=== PATIENT | male | born 1945 | race Caucasian/White ===

== ENCOUNTER → 2016-12-31 | Outpatient (CLI) | payer MEDICARE, BC ==
[~2016-12-31] MED LIST: AMLODIPINE BESY10 MG PO; ARTIFICIAL TEAR1 DRP OP; ASPIRINEC PO; CERTAGEN PO; DILANTIN KAPSE100 MG PO; DILANTIN PO; ECOTRIN81 M1 PO; IBUPROFEN PO; LIPITOR PO; LIPITOR20 MG PO; LISINOPRIL20 MG PO; LOPRESSOR PO; METOPROLOL TAR25 MG PO; PAIN RELIEVER500 M6 PO; PREDNISONE10 MG PO; VALACYCLOVIR1000 MG PO; VISION VITAMIN1 EACH PO; ZINC30 M1 PO
--- NOTE | ~2016-12-31 | US136 ---
[facility] A Service of [facility] RADIOLOGY TEXT RESULTS PATIENT: VI DONOVAN LOCATION: CNIV : 45 UNIT #: [id number] AGE: [address]: Mickie Urban MD SEX: M ORDER DR: [id number] [facility] [address] [place], [place] [address] [id number] O MR#: [id number] Acc #: [id number] NAME: VI DONOVAN. : 1945 SEX: M STUDY DATE/TIME: 12/31/2016 10:33 UNIT: CNIV ROOM: STUDY DESCRIPTION: US U/L Ext Art Study [facility] Bil Attending Physician: Mickie Urban M.D. Referring Physician: Mickie Urban M.D. Ordering Physician: Mickie Urban M.D. Primary Care Physician: Forrest Topete M.D. MEDICAL IMAGING REPORT This report is preliminary unless electronic signature is present EXAM Ankle-brachial indices, 12/31/2016. HISTORY Claudication. FINDINGS Wave forms are monophasic at the dorsalis pedis and posterior tibial levels bilaterally. Pulse volume recordings are dampened at the ankle levels bilaterally. Right brachial pressure is 151 and left brachial pressure is 141. On the right side, dorsalis pedis is 107, posterior tibial 112, great toe 66 for a right ankle-brachial index of 0.74. On the left side, posterior tibial is 108, dorsalis pedis 100, great toe 68 for a left ankle-brachial index of 0.72. IMPRESSION Moderate peripheral arterial disease is seen in the lower extremities bilaterally, with REGIS of 0.72 on the right and 0.72 on the left. Dictated by... Jayesh Rashid M.D. THIS IS AN ELECTRONICALLY VERIFIED REPORT Jayesh Rashid M.D. at 01/15/2017 5:12 PM Deng TD: 12/31/2016 19:28 [facility] A Service of [facility] RADIOLOGY TEXT RESULTS PATIENT: VI DONOVAN LOCATION: [facility] #: [id number] : [birth year] UNIT #: [id number] AGE: [address]: Mickie Urban MD SEX: M ORDER DR: JOB #: [id number] MEDICAL IMAGING REPORT Page 1 of 1 COPY
== END | disposition home or self-care (01) ==
LOC: CNIV 10:26
DX: I73.9 Peripheral vascular disease, unspecified (principal); I71.4 Abdominal aortic aneurysm, without rupture
CPT/HCPCS: 93922

== ENCOUNTER → 2017-04-02 | Day surgery (SDC) | payer MEDICARE, BC ==
--- NOTE | ~2017-04-02 | OR ---
Unit #: [id number] #: [id number] Patient: VI DONOVAN [id number] [address] [place], [place] [address] [id number] O MR#: [id number] NAME: VI DONOVAN ROOM: Date of Procedure: 04/02/2017 Admission Date: 04/02/2017 Surgeon: Jeferson Parish M.D. : 1945 Attending Physician: Jeferson Parish M.D. Primary Care Physician: Forrest Topete M.D. OPERATIVE REPORT POSTOPERATIVE DIAGNOSES Radiculopathy, spondylolisthesis, spinal stenosis, degenerative disk disease. POSTOPERATIVE DIAGNOSES Radiculopathy, spondylolisthesis, spinal stenosis, degenerative disk disease. PROCEDURE PERFORMED Lumbar epidural steroid injection with fluoroscopic guidance for needle localization. INDICATIONS FOR PROCEDURE The patient is a 71-year-old male, who has had return of left greater than right lower extremity pain to his foot. The patient has known grade 2 spondylolisthesis at the L5-S1 level. He is treated for this with epidurals back in 2012 and 2007 and did extremely well. He recently had vascular surgery, which helped his symptoms of intermittent claudication with radicular pain. Based on history, pathology, symptomatology, and prior response to treatment, we are going to proceed with a repeat epidural steroid injection today. DESCRIPTION OF PROCEDURE The patient was placed in a seated position. Standard monitors were applied. Sterile prep and drape of the lumbar area was performed. The skin then at the L5-S1 level was localized with 1% lidocaine. An 18-gauge Flexion [employer] needle was then advanced via loss of resistance technique and fluoroscopic guidance in toward the epidural space. After confirming proper positioning with fluoroscopy and radiographic contrast, 80 mg of Depo-Medrol and 6 mL of 0.125% bupivacaine were deposited. The patient tolerated the procedure otherwise well and was discharged to the recovery room in stable condition. Dictated by... Jeferson Parish M.D. LHP/trael TD: 04/02/2017 23:15 JOB #: [id number] Unit #: [id number] #: [id number] Patient: VI DONOVAN M.D. OPERATIVE REPORT Page 1 of 1 X Jeferson Parish MD X PROCEDURE OPERATIVE NOTE
== END | disposition home or self-care (01) ==
LOC: CCSC 08:33
DX: M51.16 Intervertebral disc disorders with radiculopathy, lumbar region (principal); M43.17 Spondylolisthesis, lumbosacral region; M48.06 Spinal stenosis, lumbar region; I10 Essential (primary) hypertension; G40.909 Epilepsy, unspecified, not intractable, without status epilepticus; I73.9 Peripheral vascular disease, unspecified; Z79.82 Long term (current) use of aspirin; Z79.899 Other long term (current) drug therapy
CPT/HCPCS: J1040; J2250

== ENCOUNTER → 2017-04-16 | Day surgery (SDC) | payer MEDICARE, BC ==
--- NOTE | ~2017-04-16 | OR ---
Unit #: [id number] #: [id number] Patient: VI DONOVAN [id number] [address] [place], [place] [address] [id number] O MR#: [id number] NAME: VI DONOVAN ROOM: Date of Procedure: 04/16/2017 Admission Date: 04/16/2017 Surgeon: Jeferson Parish M.D. : 1945 Attending Physician: Jeferson Parish M.D. Primary Care Physician: Forrest Topete M.D. OPERATIVE REPORT PREOPERATIVE DIAGNOSES Back pain, radiculopathy, spondylolisthesis, degenerative disk disease. POSTOPERATIVE DIAGNOSES Back pain, radiculopathy, spondylolisthesis, degenerative disk disease. PROCEDURE PERFORMED Lumbar epidural steroid injection with fluoroscopic guidance for needle localization. INDICATIONS FOR PROCEDURE The patient is a 71-year-old male with return of significant left lower extremity radicular pain. He was last treated for this problem in 2011 and did well for about 4-1/2 years. This pain flared up after having some recent vascular surgery. It would not settle with conservative measures. Workup demonstrated grade 2 spondylolisthesis at the L5-S1 level. This epidural steroid injection resulted only mild settling of the symptom complex in the past, always took the second and the third, additively gave him good improvement. Based on history, pathology, symptomatology, response to treatment, we are going to proceed with a second injection today. DESCRIPTION OF PROCEDURE The patient was placed in a seated position. Standard monitors were applied. Sterile prep and drape of the lumbar area was performed. The skin then at the L5 level was localized with 1% lidocaine. An 18-gauge [employer] needle was then advanced via loss of resistance technique and fluoroscopic guidance for needle localization. After confirming proper positioning with fluoroscopy and radiographic contrast, 80 mg of Depo-Medrol and 4 mL of 0.125% bupivacaine were deposited. The patient tolerated the procedure otherwise well and was discharged to the recovery room in stable condition. Dictated by... 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
== END | disposition home or self-care (01) ==
LOC: CCSC 07:37
DX: M51.16 Intervertebral disc disorders with radiculopathy, lumbar region (principal); M43.17 Spondylolisthesis, lumbosacral region; I10 Essential (primary) hypertension; I73.9 Peripheral vascular disease, unspecified; Z79.82 Long term (current) use of aspirin; Z79.899 Other long term (current) drug therapy
CPT/HCPCS: J1040; J2250

== ENCOUNTER → 2017-04-23 | Day surgery (SDC) | payer MEDICARE, BC ==
--- NOTE | ~2017-04-23 | OR ---
Unit #: [id number] #: [id number] Patient: VI DONOVAN [id number] [address] [place], [place] [address] [id number] O MR#: [id number] NAME: VI DONOVAN ROOM: Date of Procedure: 04/23/2017 Admission Date: 04/23/2017 Surgeon: Jeferson Parish M.D. : 1945 Attending Physician: Jeferson Parish M.D. Primary Care Physician: Forrest Topete M.D. OPERATIVE REPORT JOB NOTE: CC: [facility] PREOPERATIVE DIAGNOSES Left lower extremity radiculopathy and spinal stenosis. POSTOPERATIVE DIAGNOSES Left lower extremity radiculopathy and spinal stenosis. PROCEDURE PERFORMED Lumbar epidural steroid injection with fluoroscopic guidance for needle localization. INDICATIONS FOR PROCEDURE The patient is a 71-year-old male with return of left lower extremity radicular type pain. In the past, he had been treated for the same symptoms with epidural steroid injections and gotten very good relief for about 5 years time. Last injection was in 2011, before that in 2007. Recently had some vascular surgery, which helped his intermittent claudication symptoms, but not the radicular pain. He has known grade 2 spondylolisthesis at the L5-S1 level, so the plan is to repeat a trial of epidural steroids. He generally requires a series to get this to settle. With the due injections at this point, continues to have some left leg pain after walking 100 yards, this symptom complex is always settled with epidurals in the past. We are going to proceed with a repeat and final injection at this point. DESCRIPTION OF PROCEDURE The patient was placed in a seated position. Standard monitors were applied. Sterile prep and drape of the lumbar area was performed. The skin then at the L5-S1 level was localized with 1% lidocaine. An 18-gauge [employer] needle was then advanced via loss of resistance technique and fluoroscopic guidance in toward the epidural space. After confirming proper positioning with fluoroscopy and radiographic contrast, 80 mg of Depo-Medrol and 4 mL of 0.5% lidocaine were deposited. The patient tolerated the procedure otherwise well and was discharged to the recovery room in stable condition. Dictated by... Jeferson Parish M.D. LHP/modl Unit #: [id number] #: [id number] Patient: VI DONOVAN TD: 04/23/2017 20:01 JOB #: [id number] OPERATIVE REPORT Page 1 of 1 X Jeferson Parish MD X PROCEDURE OPERATIVE NOTE
== END | disposition home or self-care (01) ==
LOC: CCSC 08:30
DX: M51.16 Intervertebral disc disorders with radiculopathy, lumbar region (principal); M43.17 Spondylolisthesis, lumbosacral region; M48.06 Spinal stenosis, lumbar region; I10 Essential (primary) hypertension; I73.9 Peripheral vascular disease, unspecified; Z88.6 Allergy status to analgesic agent; Z79.82 Long term (current) use of aspirin; Z79.899 Other long term (current) drug therapy
CPT/HCPCS: J1040; J2250

== ENCOUNTER → 2017-07-08 | Outpatient (CLI) | payer MEDICARE, BC ==
--- NOTE | ~2017-07-08 | US135 ---
[facility] A Service of [facility] RADIOLOGY TEXT RESULTS PATIENT: VI DONOVAN LOCATION: CNIV : 45 UNIT #: [id number] AGE: [address]: Mickie Urban MD SEX: M ORDER DR: [id number] [facility] [address] [place], [place] [address] [id number] O MR#: [id number] Acc #: [id number] NAME: VI DONOVAN : 1945 SEX: M STUDY DATE/TIME: 07/08/2017 10:24 UNIT: CNIV ROOM: STUDY DESCRIPTION: US U/L Ext Art Study Comp [place] Attending Physician: Mickie Urban M.D. Referring Physician: Mickie Urban M.D. Ordering Physician: Mickie Urban M.D. Primary Care Physician: Forrest Topete M.D. MEDICAL IMAGING REPORT This report is preliminary unless electronic signature is present EXAM Lower extremity arterial studies HISTORY Abdominal aortic aneurysm, peripheral vascular disease. FINDINGS Pulse volume recordings are normal from the thigh to the calf levels bilaterally and dampened at the ankle levels bilaterally. Right brachial pressure 165, left brachial pressure is 165. On the right side high thigh pressure is 165, lower thigh is 128, calf pressure 116. Dorsalis pedis 117, posterior tibiale 119, great toe is 99 for a right ankle brachial index of 0.72. On the left side high thigh pressure is 152, lower thigh is 118, calf pressure 105, posterior tibial 110, dorsalis pedis 100. Grate toe is 51 for a left ankle brachial index of 0.61. . IMPRESSION Moderate peripheral vascular disease is seen in the lower extremities bilaterally with ankle brachial index of 0.71 on the right and 0.67 on the left. 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 Dictated by... Jayesh Rashid M.D. THIS IS AN ELECTRONICALLY VERIFIED REPORT Jayesh Rashid M.D. at 07/09/2017 3:[address] [facility] A Service of [facility] RADIOLOGY TEXT RESULTS PATIENT: VI DONOVAN LOCATION: [facility] : 45 UNIT #: [id number] AGE: [address]: Mickie Urban MD SEX: M ORDER DR: Kristina TD: 07/09/2017 12:50 JOB #: [id number] MEDICAL IMAGING REPORT Page 1 of 1 COPY
== END | disposition home or self-care (01) ==
LOC: CNIV 10:15
DX: I73.9 Peripheral vascular disease, unspecified (principal); I71.4 Abdominal aortic aneurysm, without rupture; E78.5 Hyperlipidemia, unspecified
CPT/HCPCS: 93923